=== PATIENT | female | born 1975 | race African-American/Black ===

== ENCOUNTER 2018-08-03 01:42 | Emergency (ER) | payer MEDICARE, MEDICAID ==
[2018-08-03 03:59] LABS: ABSOLUTE BASOPHILS # (AUTO) 0.1 10^3/uL (0.0-0.2); ABSOLUTE LYMPHOCYTES (AUTO) 1.9 10^3/uL (0.5-4.7); ABSOLUTE MONOCYTES (AUTO) 0.4 10^3/uL (0.1-1.4); ABSOLUTE NEUT (AUTO) 8.4 10^3/uL (1.7-8.2); BASOPHILS % (AUTO) 0.8 % (0-2); EOSINOPHILS % (AUTO) 0.2 % (0-6); HEMATOCRIT 39.9 % (36.0-47.0); HEMOGLOBIN 13.6 g/dL (12.0-15.5); LYMPHOCYTES % (AUTO) 17.8 % (13-45); MEAN CORPUSCULAR HEMOGLOBIN 30.2 pg (27.0-33.4); MEAN CORPUSCULAR HGB CONC 34.1 g/dL (32.0-36.0); MEAN CORPUSCULAR VOLUME 89 fl (80-97); MONOCYTES % (AUTO) 3.8 % (3-13); PLATELET COUNT 270 10^3/uL (150-450); RED BLOOD COUNT 4.51 10^6/uL (3.72-5.28); SEGMENTED NEUTROPHILS % (AUTO) 77.4 % (42-78); TOTAL CELLS COUNTED % (AUTO) 100 %; WHITE BLOOD COUNT 10.9 10^3/uL (4.0-10.5)
[2018-08-03 04:23] LABS: ALANINE AMINOTRANSFERASE 24 U/L (9-52); ALBUMIN 4.6 g/dL (3.5-5.0); ALKALINE PHOSPHATASE 55 U/L (38-126); ANION GAP 12 (5-19); ASPARTATE AMINO TRANSFERASE 27 U/L (14-36); BILIRUBIN,DIRECT 0.2 mg/dL (0.0-0.4); BILIRUBIN,TOTAL 0.5 mg/dL (0.2-1.3); BLOOD UREA NITROGEN 15 mg/dL (7-20); CALCIUM 10.1 mg/dL (8.4-10.2); CARBON DIOXIDE 26 mmol/L (22-30); CHLORIDE 101 mmol/L (98-107); GLUCOSE 111 mg/dL (75-110); POTASSIUM 4.2 mmol/L (3.6-5.0); SODIUM 138.7 mmol/L (137-145); TOTAL PROTEIN 8.2 g/dL (6.3-8.2)
[2018-08-03 04:57] LABS: APPEARANCE,URINE CLOUDY; BILIRUBIN,URINE NEGATIVE (NEGATIVE); COLOR,URINE YELLOW; GLUCOSE, URINE NEGATIVE (NEGATIVE); KETONES,URINE TRACE mg/dL (NEGATIVE); LEUKOCYTE ESTERASE,URINE NEGATIVE (NEGATIVE); NITRITE,URINE NEGATIVE (NEGATIVE); PROTEIN,URINE NEGATIVE (NEGATIVE); URINE SPECIFIC GRAVITY 1.028
[2018-08-03] MEDS ORDERED: ONDANSETRON ODT 4 MG TAB (6 TAB/ER DISP) PO PRN (06:27)
[2018-08-03] MEDS ORDERED: KETOROLAC TROMETHAMINE 60 MG/2 ML SDV IM ONE (06:27)
--- NOTE | 2018-08-03 06:33 | ER Document Report ---
ED General - General Chief Complaint: Vomiting Stated Complaint: VOMITING Time Seen by Provider: 08/03/18 06:10 Primary Care Provider: SREEKANTH GUZMAN DO [Primary Care Provider] - Follow up as needed - HPI Notes: Patient is a 43-year-old female who presents emergency department for evaluation of nausea, vomiting, back pain. The back pain is chronic. It was made worse after vomiting. She had 3 episodes of emesis, it all appeared to be the food that she had been eating earlier. She denies any fevers or chills. No diarrhea. No dysuria, hematuria, urinary frequency. She denies any abdominal pain. She states she was concerned she did not keep down her seizure medications. She does have a history of seizure disorder, is well controlled. Her last seizure was in April. She denies any bowel or bladder incontinence, no saddle anesthesia, no focal numbness or weakness. - Related Data Allergies/Adverse Reactions: Sulfa (Sulfonamide Antibiotics) Allergy (Verified 08/03/18 01:52) Past Medical History - General Information source: Patient - Social History Smoking Status: Current Some Day Smoker Chew tobacco use (# tins/day): No Frequency of alcohol use: Rare Drug Abuse: None Family History: Reviewed & Not Pertinent Patient has suicidal ideation: No Patient has homicidal ideation: No - Past Medical History Cardiac Medical History: Reports: Hx Hypertension Neurological Medical History: Reports: Hx Seizures Renal/ Medical History: Denies: Hx Peritoneal Dialysis Review of Systems - Review of Systems Constitutional: No symptoms reported EENT: No symptoms reported Cardiovascular: No symptoms reported Respiratory: No symptoms reported Gastrointestinal: See HPI Genitourinary: No symptoms reported Female Genitourinary: No symptoms reported Musculoskeletal: See HPI Skin: No symptoms reported Neurological/Psychological: No symptoms reported Physical Exam - Vital signs Vitals: Temp Pulse Resp BP Pulse Ox 97.7 F 87 16 154/90 H 95 08/03/18 01:52 08/03/18 01:52 08/03/18 01:52 08/03/18 01:52 08/03/18 01:52 - Notes Notes: Vital signs reviewed, please refer to chart. Patient is normocephalic, atraumatic. Pupils equal round, reactive to light. Neck is supple without meningismus. Heart is regular rate and rhythm. Lungs are clear to auscultation bilaterally. Abdomen is soft, nontender, normoactive bowel sounds throughout. Extremities without cyanosis, clubbing, edema. Peripheral pulses are equal. Skin is warm and dry. Patient is awake, alert, neurological exam is nonfocal. Examination of the spine is no midline tenderness step-off. There is paraspinal musculature tenderness noted from L3-L5 bilaterally with mild associated spasm. Negative straight leg raise bilaterally. Strength is plus 5 out of 5 bilateral lower extremities. Patellar and Achilles reflexes are 2+, sensation is intact. Course - Re-evaluation Re-evalutation: 08/03/18 06:32 Patient presents emergency department for evaluation. She had laboratory investigations as ordered through triage. There are no significant abnormalities noted. She has no sign of UTI. The patient was given Zofran via EMS on route to the hospital and is feeling improved in regards to that. She is ready to go. We will medicate her with Toradol for her back pain, send her home with Zofran. She is to take ibuprofen as needed for back pain, follow-up with primary care. She is to return to the emergency department with worsening or new concerning symptoms. - Vital Signs Vital signs: Temp Pulse Resp BP Pulse Ox 98.5 F 82 18 142/86 H 100 08/03/18 05:39 08/03/18 05:39 08/03/18 05:39 08/03/18 05:39 08/03/18 05:39 - Laboratory Result Diagrams: 08/03/18 03:35 08/03/18 03:35 Laboratory results interpreted by me: 08/03/18 08/03/18 08/03/18 03:35 03:35 04:29 WBC 10.9 H RDW 15.0 H Absolute Neutrophils 8.4 H Glucose 111 H Urine Ketones TRACE H Urine Urobilinogen 2.0 H Discharge - Discharge Clinical Impression: Nausea and vomiting Condition: Stable Disposition: HOME, SELF-CARE Instructions: Vomiting ([facility]), Antinausea Medication ([facility]) Additional Instructions: No clear reason was found for your vomiting today. Rest. Clear liquids only for the next several hours. Advance slowly to bland diet to avoid further vomiting. Take [id number] ibuprofen as needed for back pain. Return to the emergency department with worsening or new concerning symptoms. Referrals: SREEKANTH GUZMAN, [Primary Care Provider] - Follow up as needed
[2018-08-03 07:21] VITALS: BP 139/71
== END 2018-08-03 07:20 | disposition home or self-care (01) ==
LOC: ER 01:42
DX: R11.2 Nausea with vomiting, unspecified (principal); M54.9 Dorsalgia, unspecified; G89.29 Other chronic pain; G40.909 Epilepsy, unspecified, not intractable, without status epilepticus; F17.200 Nicotine dependence, unspecified, uncomplicated; I10 Essential (primary) hypertension
CPT/HCPCS: 99283; 96372; 36415; 85025; 80053; 81001; J1885; A9270

== ENCOUNTER 2018-08-03 18:58 | Emergency (ER) | payer MEDICARE, MEDICAID ==
--- NOTE | 2018-08-03 20:28 | ER Document Report ---
ED Medical Screen (RME) - General Chief Complaint: Probable Seizure Stated Complaint: POSSIBLE SEZIURE Time Seen by Provider: 08/03/18 20:21 Primary Care Provider: SREEKANTH GUZMAN DO [Primary Care Provider] - Follow up as needed Mode of Arrival: Wheelchair Information source: Patient Notes: 43-year-old female presented to ED for complaint possible seizure today. She states she came in earlier and was seen by 1 of the provider for her chronic back pain became much worse with vomiting. She states she takes her seizure medicine Depakote and her blood pressure medicine and she vomited those up to. She states when she went home she took her medicine for blood pressure and her Depakote and then she laid down to sleep said she woke up and she vomited and she was feeling like she was shaky and she thought she was having a seizure so she tried to stay calm until she can get sitting down but she was told that she needed to get up and opened the door to the house so that EMS could come in. She states that when she was trying to get to the door she fell knocking her primary care over but was very careful not to hit her head. She states she did not lose consciousness during her seizure and she tried to stay calm throughout it. Patient is alert oriented respirations regular and unlabored. I have greeted and performed a rapid initial assessment of this patient. A comprehensive ED assessment and evaluation of the patient, analysis of test results and completion of medical decision making process will be conducted by an additional ED providers. TRAVEL OUTSIDE OF THE [place] IN LAST 30 DAYS: No - Related Data Allergies/Adverse Reactions: Sulfa (Sulfonamide Antibiotics) Allergy (Verified 08/03/18 19:00) Past Medical History - Past Medical History Cardiac Medical History: Reports: Hx Hypertension Neurological Medical History: Reports: Hx Seizures Renal/ Medical History: Denies: Hx Peritoneal Dialysis Physical Exam - Vital signs Vitals: Temp Pulse Resp BP Pulse Ox 98.1 F 96 16 137/95 H 99 08/03/18 19:40 08/03/18 19:40 08/03/18 19:40 08/03/18 19:40 08/03/18 19:40 Course - Vital Signs Vital signs: Temp Pulse Resp BP Pulse Ox 98.1 F 96 16 137/95 H 99 08/03/18 19:40 08/03/18 19:40 08/03/18 19:40 08/03/18 19:40 08/03/18 19:40 Doctor's Discharge - Discharge Referrals: SREEKANTH GUZMAN DO [Primary Care Provider] - Follow up as needed
[2018-08-03 21:15] LABS: APPEARANCE,URINE CLOUDY; BILIRUBIN,URINE NEGATIVE (NEGATIVE); GLUCOSE, URINE NEGATIVE (NEGATIVE); KETONES,URINE TRACE mg/dL (NEGATIVE); LEUKOCYTE ESTERASE,URINE TRACE (NEGATIVE); NITRITE,URINE NEGATIVE (NEGATIVE); PROTEIN,URINE 100 mg/dL (NEGATIVE); URINE SPECIFIC GRAVITY 1.033
[2018-08-03 21:16] LABS: COLOR,URINE YELLOW
[2018-08-03 21:55] LABS: ABSOLUTE BASOPHILS # (AUTO) 0.2 10^3/uL (0.0-0.2); ABSOLUTE EOSINOPHILS # (AUTO) 0.1 10^3/uL (0.0-0.6); ABSOLUTE LYMPHOCYTES (AUTO) 3.4 10^3/uL (0.5-4.7); ABSOLUTE MONOCYTES (AUTO) 0.8 10^3/uL (0.1-1.4); ABSOLUTE NEUT (AUTO) 6.2 10^3/uL (1.7-8.2); BASOPHILS % (AUTO) 1.5 % (0-2); EOSINOPHILS % (AUTO) 0.7 % (0-6); HEMATOCRIT 39.8 % (36.0-47.0); HEMOGLOBIN 13.4 g/dL (12.0-15.5); MEAN CORPUSCULAR HGB CONC 33.7 g/dL (32.0-36.0); MEAN CORPUSCULAR VOLUME 89 fl (80-97); MONOCYTES % (AUTO) 7.4 % (3-13); PLATELET COUNT 264 10^3/uL (150-450); RED BLOOD COUNT 4.47 10^6/uL (3.72-5.28); RED CELL DISTRIBUTION WIDTH 15.5 % (11.5-14.0); SEGMENTED NEUTROPHILS % (AUTO) 58.4 % (42-78); TOTAL CELLS COUNTED % (AUTO) 100 %; WHITE BLOOD COUNT 10.6 10^3/uL (4.0-10.5)
[2018-08-03 22:13] LABS: ALANINE AMINOTRANSFERASE 32 U/L (9-52); ALBUMIN 4.3 g/dL (3.5-5.0); ALKALINE PHOSPHATASE 52 U/L (38-126); ANION GAP 12 (5-19); ASPARTATE AMINO TRANSFERASE 27 U/L (14-36); BILIRUBIN,DIRECT 0.3 mg/dL (0.0-0.4); BILIRUBIN,TOTAL 0.7 mg/dL (0.2-1.3); BLOOD UREA NITROGEN 17 mg/dL (7-20); CALCIUM 9.8 mg/dL (8.4-10.2); CARBON DIOXIDE 25 mmol/L (22-30); CHLORIDE 100 mmol/L (98-107); GLUCOSE 93 mg/dL (75-110); POTASSIUM 4.1 mmol/L (3.6-5.0); SODIUM 136.7 mmol/L (137-145); TOTAL PROTEIN 7.8 g/dL (6.3-8.2)
[2018-08-03] MEDS ORDERED: ONDANSETRON 4 MG TAB.RAPDIS PO ONE (23:42)
[2018-08-03] MEDS ORDERED: DIVALPROEX SODIUM 500 MG TAB.SR.24H PO ONE (23:42)
[2018-08-03] MEDS ORDERED: LEVETIRACETAM 500 MG TABLET PO ONE (23:42)
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
[2018-08-04 02:26] VITALS: BP 130/88
== END 2018-08-04 00:15 | disposition home or self-care (01) ==
LOC: ER 18:58
DX: R56.9 Unspecified convulsions (principal); M54.9 Dorsalgia, unspecified; R55 Syncope and collapse; R53.1 Weakness; W18.30XA Fall on same level, unspecified, initial encounter; Y92.009 Unspecified place in unspecified non-institutional (private) residence as the place of occurrence of the external cause; I10 Essential (primary) hypertension
CPT/HCPCS: 99284; 36415; 85025; 80053; 81001; 80164; A9270 ×3; S0119

== ENCOUNTER 2019-04-10 21:34 | Emergency (ER) | payer MEDICARE, MEDICAID ==
[2019-04-10] MEDS ORDERED: NORMAL SALINE 1000 ML 1,000 ML IV ONE (22:41)
[2019-04-10] MEDS ORDERED: DIAZEPAM 5 MG TABLET PO ONE (22:41)
--- NOTE | 2019-04-10 22:43 | ER Document Report ---
ED General - General Chief Complaint: Chest Pain > 30 Stated Complaint: CHEST PAIN Time Seen by Provider: 04/10/19 22:34 Primary Care Provider: BRANDON CORTES PA-C [Primary Care Provider] - Follow up as needed Notes: Patient is a 43-year-old female that comes by EMS for chief complaint of pain along her chest that started last night about 24 hours ago, she states that it has continued and she could not get to sleep tonight, she states it feels like a spasm across her chest and into her right arm. She states she actually has chronic spasms mainly in her right arm and occasionally over the chest, she takes baclofen for this, she states normally the baclofen works but did not tonight. She denies injury, numbness, fever/chills, nausea/vomiting, or other locations of pain. She states she has a history of hypertension and seizures and takes Depakote and lisinopril, denies recreational drugs or smoking, denies medical history otherwise. She was given 324 mg of aspirin and a sublingual nitroglycerin by EMS, she states she feels the same. Patient secondarily states that she has been urinating frequently as well and not drinking much fluid. TRAVEL OUTSIDE OF THE [place] IN LAST 30 DAYS: No - Related Data Allergies/Adverse Reactions: Sulfa (Sulfonamide Antibiotics) Allergy (Verified 08/03/18 19:00) Home Medications: lisinopril 40mg QAM, Gabapentin, Depakote 500 mg BID, Baclofen 10mg TID, Ambien 10 mg, Melatonin gummies Past Medical History - General Information source: Patient - Social History Smoking Status: Never Smoker Frequency of alcohol use: None Drug Abuse: None Lives with: Family Family History: Reviewed & Not Pertinent Patient has suicidal ideation: No Patient has homicidal ideation: No - Past Medical History Cardiac Medical History: Reports: Hx Hypertension Neurological Medical History: Reports: Hx Seizures Renal/ Medical History: Denies: Hx Peritoneal Dialysis Surgical Hx: Negative - Immunizations Immunizations up to date: Yes Hx Diphtheria, Pertussis, Tetanus Vaccination: Yes Review of Systems - Review of Systems Constitutional: No symptoms reported EENT: No symptoms reported Cardiovascular: See HPI Respiratory: No symptoms reported Gastrointestinal: No symptoms reported Genitourinary: No symptoms reported Female Genitourinary: No symptoms reported Musculoskeletal: See HPI Skin: No symptoms reported Hematologic/Lymphatic: No symptoms reported Neurological/Psychological: No symptoms reported Physical Exam - Vital signs Vitals: Resp Pulse Ox 12 100 04/10/19 22:01 04/10/19 22:01 - Notes Notes: GENERAL: Alert, interacts well. No acute distress. HEAD: Normocephalic, atraumatic. EYES: Pupils equal, round, and reactive to light. Extraocular movements intact. ENT: Oral mucosa moist, tongue midline. Oropharynx unremarkable. Airway patent. NECK: Full range of motion. Supple. Trachea midline. LUNGS: Clear to auscultation bilaterally, no wheezes, rales, or rhonchi. No respiratory distress. Pain with palpation over the mid to right side of the chest, pain is also worsened with movement of the right arm and shoulder. HEART: Regular rate and rhythm. No murmur ABDOMEN: Soft, non-tender. Non-distended. EXTREMITIES: Moves all 4 extremities spontaneously. No edema, normal radial and dorsalis pedis pulses bilaterally. No cyanosis. BACK: no cervical, thoracic, lumbar midline tenderness. No saddle anesthesia, normal distal neurovascular exam. Moves all extremities in full range of motion. NEUROLOGICAL: Alert and oriented x3. Normal speech. Cranial nerves II through XII grossly intact. PSYCH: Slightly flat affect but makes good eye contact and interacts well otherwise SKIN: Warm, dry, normal turgor. No rashes or lesions noted. Course - Re-evaluation Re-evalutation: Patient with reproducible symptoms with movement and with palpation over the chest wall. This is also not new for patient, she normally takes baclofen for this. There is no sign of injury. Patient is not in severe distress. CBC, chemistry, initial troponin negative. negative. Chest x-ray unremarkable. Patient feels somewhat better after initial management. Delta troponin negative. EKG is somewhat borderline with no comparison, however patient does not really have chest pain, she states she has muscle spasms over her chest and this is worse when she moves and this is chronic for her. Her heart score is less than 4. Patient asymptomatic on reevaluation after treatment for spasm and with anti-inflammatory. I discussed her results in detail, she states satisfaction and she is ready to leave. She states the spasm is under control and she feels much better now. We did discuss treatment options, because this is her chest wall we did provide her with dexamethasone. She has baclofen at home for this. I have a very low suspicion of ACS based on her negative work-up and reproducible chronic symptoms. Discussed follow-up and return precautions. Patient states appreciation and agreement. Stable at time of discharge. - Vital Signs Vital signs: Temp Pulse Resp BP Pulse Ox 97.9 F 87 21 H 147/97 H 100 04/11/19 06:41 04/11/19 06:41 04/11/19 06:41 04/11/19 06:41 04/11/19 06:41 - Laboratory Result Diagrams: 04/10/19 23:25 04/10/19 23:25 Laboratory results interpreted by me: 04/10/19 23:25 RDW 15.5 H Lymph % (Auto) 45.9 H - EKG Interpretation by Me Additional EKG results interpreted by me: EKG shows sinus rhythm at a rate of 95, normal axis. Borderline T waves inferiorly, no ST segment changes in consecutive leads. No comparison. Discharge - Discharge Clinical Impression: Chest wall pain, Muscle spasm Condition: Stable Disposition: HOME, SELF-CARE Additional Instructions: You have been evaluated for chest pain and chest wall pain in the emergency department tonight. Continue baclofen for muscle spasms, apply heat to your chest wall, you have been treated with dexamethasone to help with your symptoms. Follow-up with primary care for additional evaluation. Return for any concerning or worsening symptoms including fever, difficulty breathing, vomiting, severe worsening pain, passing out, or any other concerning symptoms. Referrals: BRANDON CORTES PA-C [Primary Care Provider] - Follow up as needed
[2019-04-10 23:06] LABS: APPEARANCE,URINE CLEAR; BILIRUBIN,URINE NEGATIVE (NEGATIVE); COLOR,URINE STRAW; GLUCOSE, URINE NEGATIVE (NEGATIVE); KETONES,URINE NEGATIVE (NEGATIVE); LEUKOCYTE ESTERASE,URINE NEGATIVE (NEGATIVE); NITRITE,URINE NEGATIVE (NEGATIVE); PROTEIN,URINE NEGATIVE (NEGATIVE); URINE SPECIFIC GRAVITY 1.009; UROBILINOGEN,URINE NEGATIVE mg/dL (<2.0)
[2019-04-10 23:41] LABS: ABSOLUTE BASOPHILS # (AUTO) 0.1 10^3/uL (0.0-0.2); ABSOLUTE MONOCYTES (AUTO) 0.5 10^3/uL (0.1-1.4); ABSOLUTE NEUT (AUTO) 4.1 10^3/uL (1.7-8.2); BASOPHILS % (AUTO) 1.2 % (0-2); EOSINOPHILS % (AUTO) 0.4 % (0-6); HEMATOCRIT 39.2 % (36.0-47.0); HEMOGLOBIN 13.2 g/dL (12.0-15.5); LYMPHOCYTES % (AUTO) 45.9 % (13-45); MEAN CORPUSCULAR HEMOGLOBIN 29.9 pg (27.0-33.4); MEAN CORPUSCULAR HGB CONC 33.6 g/dL (32.0-36.0); MEAN CORPUSCULAR VOLUME 89 fl (80-97); MONOCYTES % (AUTO) 5.7 % (3-13); PLATELET COUNT 221 10^3/uL (150-450); RED BLOOD COUNT 4.41 10^6/uL (3.72-5.28); RED CELL DISTRIBUTION WIDTH 15.5 % (11.5-14.0); SEGMENTED NEUTROPHILS % (AUTO) 46.8 % (42-78); TOTAL CELLS COUNTED % (AUTO) 100 %; WHITE BLOOD COUNT 8.8 10^3/uL (4.0-10.5)
--- NOTE | 2019-04-10 23:44 | RADIOLOGY REPORT (SQ) ---
EXAM DESCRIPTION: XR CHEST 2 VIEWS COMPLETED DATE/TME: 04/10/2019 22:40 CLINICAL HISTORY: 43 years, Female, chest pain COMPARISON: None. NUMBER OF VIEWS: 2 TECHNIQUE: 2 views of the chest LIMITATIONS: None. FINDINGS: The heart size is normal. The lungs are clear. There is no pneumothorax IMPRESSION: Negative chest copyright 2010 [facility]- All Rights Reserved
[2019-04-10 23:53] LABS: ALBUMIN 4.2 g/dL (3.5-5.0); ALKALINE PHOSPHATASE 57 U/L (38-126); ANION GAP 9 (5-19); ASPARTATE AMINO TRANSFERASE 29 U/L (14-36); BILIRUBIN,DIRECT 0.1 mg/dL (0.0-0.4); BILIRUBIN,TOTAL 0.5 mg/dL (0.2-1.3); BLOOD UREA NITROGEN 12 mg/dL (7-20); CALCIUM 9.6 mg/dL (8.4-10.2); CARBON DIOXIDE 26 mmol/L (22-30); CHLORIDE 103 mmol/L (98-107); GLUCOSE 93 mg/dL (75-110); POTASSIUM 3.9 mmol/L (3.6-5.0); TOTAL PROTEIN 7.8 g/dL (6.3-8.2)
[2019-04-11] MEDS ORDERED: KETOROLAC TROMETHAMINE INJ/PF 30 MG/1 ML SDV IV ONE (01:15)
[2019-04-11] MEDS ORDERED: LORAZEPAM INJ 2 MG/1 ML VIAL IV ONE (01:15)
[2019-04-11] MEDS ORDERED: DEXAMETHASONE SOD PHOS INJ 10 MG/1 ML VIAL IV ONE (03:30)
[2019-04-11 06:42] VITALS: BP 147/97
--- NOTE | 2019-04-11 20:03 | EKG REPORT ---
SEVERITY:- ABNORMAL ECG - SINUS RHYTHM BORDERLINE RIGHT AXIS DEVIATION ABNORMAL T, CONSIDER ISCHEMIA, INFERIOR LEADS : Confirmed by: Vivienne Ronquillo MD 11-Apr-2019 20:02:44
== END 2019-04-11 06:42 | disposition home or self-care (01) ==
LOC: ER 21:34
DX: R07.89 Other chest pain (principal); M62.838 Other muscle spasm; I10 Essential (primary) hypertension; Z88.2 Allergy status to sulfonamides
CPT/HCPCS: 93005; 99285; 96361; 96374; 96375; 36415; 84703; 85025; 80053; 81001; 84484; 71046; 93010; A9270; J1885; J2060; J7030; J1100

== ENCOUNTER 2019-06-26 21:06 | Emergency (ER) | payer MEDICARE, MEDICAID ==
[2019-06-26] MEDS ORDERED: LORAZEPAM INJ 2 MG/1 ML VIAL IV ONE (22:21)
[2019-06-26] MEDS ORDERED: KETOROLAC TROMETHAMINE INJ/PF 30 MG/1 ML SDV IV ONE (22:21)
--- NOTE | 2019-06-26 22:22 | ER Document Report ---
ED General - General Chief Complaint: Chest Pain Stated Complaint: CHEST PAIN Time Seen by Provider: 06/26/19 22:03 Primary Care Provider: BRANDON CORTES PA-C [Primary Care Provider] - Follow up as needed Cannot obtain history due to: Uncooperative Notes: 44-year-old woman presents with a complaint of muscle spasms and chest discomfort. States that she has history of a seizure disorder and usually preceded by spasms involving her arms and shoulders with associated chest discomfort. She has been taking baclofen at home and recently had a 72-hour EEG. She has not heard from the results of the EEG the symptoms began this afternoon about 1:00 in the afternoon. She states that she is gripping the rail now to keep the spasm under some control. She has pain in the shoulder area pain in the anterior chest and also pain in the arms. TRAVEL OUTSIDE OF THE [place] IN LAST 30 DAYS: No - Related Data Allergies/Adverse Reactions: Sulfa (Sulfonamide Antibiotics) Allergy (Verified 08/03/18 19:00) Past Medical History - Social History Smoking Status: Unknown if Ever Smoked Family History: Reviewed & Not Pertinent Patient has suicidal ideation: No Patient has homicidal ideation: No - Past Medical History Cardiac Medical History: Reports: Hx Hypertension Neurological Medical History: Reports: Hx Seizures Renal/ Medical History: Denies: Hx Peritoneal Dialysis - Immunizations Immunizations up to date: Yes Hx Diphtheria, Pertussis, Tetanus Vaccination: Yes Review of Systems - Review of Systems Notes: Constitutional: Negative for fever. HENT: Negative for sore throat. Eyes: Negative for visual changes. Cardiovascular: Negative for chest pain. Respiratory: Negative for shortness of breath. Gastrointestinal: Negative for abdominal pain, vomiting or diarrhea. Genitourinary: Negative for dysuria. Musculoskeletal: + Muscle spasm, + musculoskeletal chest pain. Skin: Negative for rash. Neurological: Negative for headaches, weakness or numbness. 10 point ROS negative except as marked above and in HPI. Physical Exam - Vital signs Vitals: Resp Pulse Ox 16 100 06/26/19 21:26 06/26/19 21:26 - Notes Notes: PHYSICAL EXAMINATION: Physical Exam: General: Well-nourished well-developed 84-year-old woman in moderate distress secondary to muscle spasms. HEENT: NC/AT, pupils equal round and reactive to light, MM moist,nares clear, oropharynx clear, airway patent Neck: supple, no adenopathy, no masses. Good range of motion Lungs: clear, no wheezing, no rales no rhonchi CVS: Regular rate and rhythm no murmur gallop or rub Abdomen: Soft, active, nontender, no masses, no hepatosplenomegaly Ext: + Tenderness in the right upper trapezius muscle group and tenderness to palpation left upper trapezius and tricep region + anterior chest pain. Neuro: Alert and responsive, moving all 4 extremities on command, cranial nerves intact, no focal findings Skin: Intact no open lesions, no rash PSYCH: Normal mood, normal affect. Course - Re-evaluation Re-evalutation: 06/27/19 00:07 Patient was given Lorazepam 2 mg IV along with her usual medications Depakote and baclofen 20 mg in the emergency department. She continues to have some milder symptoms but is markedly improved. I am discharging her home to follow- up with her primary care doctor with regards to her EEG and further management of her muscle spasms. - Vital Signs Vital signs: Temp Pulse Resp BP Pulse Ox 16 99 06/26/19 21:26 06/26/19 22:33 - Laboratory Result Diagrams: 06/26/19 22:25 06/26/19 22:25 Laboratory results interpreted by me: 06/26/19 06/26/19 22:25 22:25 RDW 15.2 H Lymph % (Auto) 47.2 H Creatine Kinase 418 H I have reviewed laboratory data and used this information for the treatment decisions regarding the patient. - EKG Interpretation by Me EKG shows normal: Sinus rhythm - Rate of 98, left atrial abnormality, nonspecific T wave abnormalities. No acute ST or T wave abnormalities seen. Discharge - Discharge Clinical Impression: Chest pain, musculoskeletal, Muscle spasm Condition: Good Disposition: HOME, SELF-CARE Additional Instructions: You are diagnosed with muscle spasms and muscle skeletal chest pain in the [facility] department tonight. Please continue your usual medications and follow-up with your doctor regarding the results of your EEG. You may return to the emergency department if your symptoms are worsening or if you have new concerns. HOME CARE INSTRUCTIONS & INFORMATION: Thank you for choosing us for your medical needs. We hope you're satisfied with the care you received. After you leave, you must properly care for your problem and, at the same time, observe its progress. Any condition can change. Some illnesses can change rapidly over hours or days. If your condition worsens, return to the Emergency Department or see your physician promptly. ABOUT YOUR X-RAYS AND EKG'S: If you had an EKG or X-rays taken, they have been read by the Emergency Physician. The X-rays and EKG's will also be read by a Radiologist or [employer] within 24 hours. If discrepancies are noted, you will be notified by telephone. Please be certain the ED has a correct telephone number & address where you can be reached. Also, realize that some fractures or abnormalities do not show up on initial X-rays. If your symptoms continue, see your physician. ABOUT YOUR LABORATORY TEST: If you had laboratory tests, the results have been reviewed by the Emergency Physician. Some test results (for example cultures) may not be available for several days. You will be contacted if any test result shows you need additional treatment. Please be certain the ED has a correct telephone number and address where you can be reached. ABOUT YOUR MEDICATIONS: You will receive instructions on how to take your medicine on the prescription label you receive. Additional information may be provided by the Pharmacy. If you have questions afterwards, call the ED for clarification or further instructions. Some prescribed medications may cause drowsiness. Do not perform tasks such as driving a car or operating machinery without consulting your Pharmacist. If you feel you need a refill of pain medication, your condition will need re-evaluation. Please do not call for a refill of any medication. ABOUT YOUR SIGNATURE: Signature of this document acknowledges to followin. Understanding that you received emergency treatment and that you may be released before al medical problems are known or treated. Please be certain the ED has a correct phone number & address where you can be reached. 2. Acknowledgement that you will arrange for follow-up care as recommended. 3. Authorization for the Emergency Physician to provide information to your follow-up Physician in order to maximize your care. AT ANY TIME, IF YOUR SYMPTOMS CHANGE SIGNIFICANTLY OR WORSEN OR YOU DEVELOP NEW SYMPTOMS, RETURN TO THE EMERGENCY DEPARTMENT IMMEDIATELY FOR RE-EVALUATION. OUR GOAL IS TO PROVIDE EXCELLENT MEDICAL CARE! WE HOPE THAT WE HAVE MET YOUR EXPECTATIONS DURING YOUR EMERGENCY DEPARTMENT VISIT AND THAT YOU FEEL YOU HAVE RECEIVED EXCELLENT CARE! Referrals: BRANDON CORTES PA-C [Primary Care Provider] - Follow up as needed
[2019-06-26 22:44] LABS: ABSOLUTE BASOPHILS # (AUTO) 0.1 10^3/uL (0.0-0.2); ABSOLUTE EOSINOPHILS # (AUTO) 0.1 10^3/uL (0.0-0.6); ABSOLUTE LYMPHOCYTES (AUTO) 4.6 10^3/uL (0.5-4.7); ABSOLUTE MONOCYTES (AUTO) 0.6 10^3/uL (0.1-1.4); ABSOLUTE NEUT (AUTO) 4.3 10^3/uL (1.7-8.2); BASOPHILS % (AUTO) 1.4 % (0-2); EOSINOPHILS % (AUTO) 0.6 % (0-6); HEMATOCRIT 38.5 % (36.0-47.0); LYMPHOCYTES % (AUTO) 47.2 % (13-45); MEAN CORPUSCULAR HEMOGLOBIN 29.8 pg (27.0-33.4); MEAN CORPUSCULAR HGB CONC 33.7 g/dL (32.0-36.0); MEAN CORPUSCULAR VOLUME 88 fl (80-97); MONOCYTES % (AUTO) 6.3 % (3-13); PLATELET COUNT 240 10^3/uL (150-450); RED BLOOD COUNT 4.36 10^6/uL (3.72-5.28); RED CELL DISTRIBUTION WIDTH 15.2 % (11.5-14.0); SEGMENTED NEUTROPHILS % (AUTO) 44.5 % (42-78); TOTAL CELLS COUNTED % (AUTO) 100 %; WHITE BLOOD COUNT 9.7 10^3/uL (4.0-10.5)
[2019-06-26 22:57] LABS: ALKALINE PHOSPHATASE 55 U/L (38-126); ANION GAP 12 (5-19); ASPARTATE AMINO TRANSFERASE 30 U/L (14-36); BILIRUBIN,DIRECT 0.3 mg/dL (0.0-0.4); BILIRUBIN,TOTAL 0.5 mg/dL (0.2-1.3); BLOOD UREA NITROGEN 16 mg/dL (7-20); CALCIUM 9.4 mg/dL (8.4-10.2); CARBON DIOXIDE 23 mmol/L (22-30); CHLORIDE 104 mmol/L (98-107); CREATINE KINASE 418 U/L (30-135); GLUCOSE 86 mg/dL (75-110); POTASSIUM 4.1 mmol/L (3.6-5.0); TOTAL PROTEIN 7.6 g/dL (6.3-8.2)
[2019-06-26 23:07] LABS: CREATINE KINASE MB 3.34 ng/mL (<4.55)
[2019-06-26 23:08] LABS: TROPONIN I < 0.012 ng/mL
[2019-06-26] MEDS ORDERED: DIVALPROEX SODIUM 500 MG TAB.SR.24H PO ONE (23:19)
[2019-06-26] MEDS ORDERED: BACLOFEN 20 MG TABLET PO ONE (23:20)
[2019-06-27 01:11] VITALS: BP 167/111
--- NOTE | 2019-06-27 17:24 | EKG REPORT ---
SEVERITY:- ABNORMAL ECG - SINUS RHYTHM LEFT ATRIAL ABNORMALITY NONSPECIFIC T ABNORMALITIES, DIFFUSE LEADS : Confirmed by: Priyanka Jones 27-Jun-2019 17:23:18
== END 2019-06-27 01:29 | disposition home or self-care (01) ==
LOC: ER 21:06
DX: M62.838 Other muscle spasm (principal); R07.89 Other chest pain; I10 Essential (primary) hypertension; Z79.899 Other long term (current) drug therapy
CPT/HCPCS: 93005; 99285; 96374; 96375; 36415; 82553; 82550; 85025; 80053; 84484; 93010; J1885; J2060; A9270 ×2; J3490

== ENCOUNTER 2019-06-29 09:31 | Emergency (ER) | payer MEDICARE, MEDICAID ==
--- NOTE | 2019-06-29 10:20 | ER Document Report ---
ED Medical Screen (RME) - General Chief Complaint: Tremor Stated Complaint: TREMORS Time Seen by Provider: 06/29/19 10:14 Primary Care Provider: BRANDON CORTES PA-C [Primary Care Provider] - Follow up as needed Mode of Arrival: Wheelchair Notes: This is a 44-year-old female presents to the emergency room today stating she has chest pain left shoulder tremors she states the tremors have been ongoing since she was roughly 11 years old after a traumatic event. The chest pain initiated this morning at 7:00 and woke her from sleep. TRAVEL OUTSIDE OF THE [place] IN LAST 30 DAYS: No - Related Data Allergies/Adverse Reactions: Sulfa (Sulfonamide Antibiotics) Allergy (Verified 08/03/18 19:00) Home Medications: Depakote, Baclofen, lisinopril, lasix, gabapentin, meloxicam, aspirin Past Medical History - Social History Frequency of alcohol use: Occasional Drug Abuse: None - Past Medical History Cardiac Medical History: Reports: Hx Hypertension Neurological Medical History: Reports: Hx Seizures Renal/ Medical History: Denies: Hx Peritoneal Dialysis - Immunizations Immunizations up to date: Yes Hx Diphtheria, Pertussis, Tetanus Vaccination: Yes Physical Exam - Vital signs Vitals: Temp Pulse Resp BP Pulse Ox 98.4 F 98 18 143/101 H 100 06/29/19 09:38 06/29/19 09:38 06/29/19 09:38 06/29/19 09:38 06/29/19 09:38 - Cardiovascular Rhythm: Regular Heart sounds: Normal auscultation Murmur: No Course - Vital Signs Vital signs: Temp Pulse Resp BP Pulse Ox 98.4 F 98 18 143/101 H 100 06/29/19 09:38 06/29/19 09:38 06/29/19 09:38 06/29/19 09:38 06/29/19 09:38 Doctor's Discharge - Discharge Referrals: BRANDON CORTES PA-C [Primary Care Provider] - Follow up as needed
[2019-06-29 10:59] LABS: ABSOLUTE BASOPHILS # (AUTO) 0.1 10^3/uL (0.0-0.2); ABSOLUTE LYMPHOCYTES (AUTO) 2.7 10^3/uL (0.5-4.7); ABSOLUTE MONOCYTES (AUTO) 0.3 10^3/uL (0.1-1.4); ABSOLUTE NEUT (AUTO) 3.5 10^3/uL (1.7-8.2); BASOPHILS % (AUTO) 1.2 % (0-2); EOSINOPHILS % (AUTO) 0.5 % (0-6); HEMATOCRIT 39.6 % (36.0-47.0); HEMOGLOBIN 13.3 g/dL (12.0-15.5); MEAN CORPUSCULAR HEMOGLOBIN 29.8 pg (27.0-33.4); MEAN CORPUSCULAR HGB CONC 33.5 g/dL (32.0-36.0); MEAN CORPUSCULAR VOLUME 89 fl (80-97); MONOCYTES % (AUTO) 4.8 % (3-13); PLATELET COUNT 235 10^3/uL (150-450); RED BLOOD COUNT 4.45 10^6/uL (3.72-5.28); RED CELL DISTRIBUTION WIDTH 14.7 % (11.5-14.0); SEGMENTED NEUTROPHILS % (AUTO) 52.5 % (42-78); TOTAL CELLS COUNTED % (AUTO) 100 %; WHITE BLOOD COUNT 6.6 10^3/uL (4.0-10.5)
[2019-06-29 11:20] LABS: ALBUMIN 4.1 g/dL (3.5-5.0); ALKALINE PHOSPHATASE 46 U/L (38-126); ANION GAP 10 (5-19); ASPARTATE AMINO TRANSFERASE 29 U/L (14-36); BILIRUBIN,DIRECT 0.2 mg/dL (0.0-0.4); BILIRUBIN,TOTAL 0.8 mg/dL (0.2-1.3); BLOOD UREA NITROGEN 13 mg/dL (7-20); CALCIUM 9.1 mg/dL (8.4-10.2); CARBON DIOXIDE 25 mmol/L (22-30); CHLORIDE 103 mmol/L (98-107); CREATINE KINASE 364 U/L (30-135); GLUCOSE 86 mg/dL (75-110); POTASSIUM 4.1 mmol/L (3.6-5.0); TOTAL PROTEIN 7.7 g/dL (6.3-8.2)
[2019-06-29] MEDS ORDERED: KETOROLAC TROMETHAMINE INJ/PF 30 MG/1 ML SDV IV ONE (11:40)
[2019-06-29] MEDS ORDERED: DIAZEPAM 5 MG TABLET PO ONE (11:40)
[2019-06-29 11:47] LABS: CREATINE KINASE MB 3.57 ng/mL (<4.55)
--- NOTE | 2019-06-29 11:47 | ER Document Report ---
ED Cardiac - General Chief Complaint: Tremor Stated Complaint: TREMORS Time Seen by Provider: 06/29/19 10:14 Primary Care Provider: BRANDON CORTES PA-C [Primary Care Provider] - Follow up as needed Mode of Arrival: Wheelchair Notes: CHIEF COMPLAINT: Muscle spasm and chest pain today HPI: 44-year-old female with a history of muscular spasm followed by neurology presenting with right-sided chest pain that began this morning, reports some lightheadedness. States pain is reproducible to palpation of movement. States that she had something similar 3 days ago when she presented to the emergency department. Patient states that she did call her neurologist after that visit and they told her to stop her baclofen which she has been on for a long time. Now reporting worsening spasm. No shortness of breath no fever no cough. States she has never seen a oncologist. ROS: See HPI - all other systems were reviewed and are otherwise negative Constitutional: no fever Eyes: no drainage, no blurred vision ENT: no runny nose, no sore throat Cardiovascular: Positive chest wall pain Resp: no SOB, no cough GI: no vomiting, no diarrhea, no abdominal pain : no dysuria Integumentary: no rash Allergy: no hives Musculoskeletal: Positive extremity pain or swelling Neurological: no numbness/tingling, no weakness MEDICATIONS: I agree with the patient medications as charted by the RN. ALLERGIES: I agree with the allergies as charted by the RN. PAST MEDICAL HISTORY/PAST SURGICAL HISTORY: Reviewed and agree as charted by RN. SOCIAL HISTORY: Reviewed and agree as charted by RN. FAMILY HISTORY: No significant familial comorbid conditions directly related to patient complaint EXAM: Reviewed vital signs as charted by RN. CONSTITUTIONAL: Alert and oriented and responds appropriately to questions. Well-appearing; well-nourished, no acute distress HEAD: Normocephalic; atraumatic EYES: PERRL; Conjunctivae clear, sclerae non-icteric ENT: normal nose; no rhinorrhea; moist mucous membranes; pharynx without lesions noted, no uvula edema or deviation, no tonsillar hypertrophy, phonation normal NECK: Supple without meningismus; non-tender; no cervical lymphadenopathy, no masses CARD: RRR; no murmurs, no clicks, no rubs, no gallops; symmetric distal pulses RESP: Normal chest excursion without splinting or tachypnea; breath sounds clear and equal bilaterally; no wheezes, no rhonchi, no rales, pulse oximetry 100% on room air not hypoxic. There is reproducible pain on palpation of the right upper chest wall ABD/GI: Normal bowel sounds; non-distended; soft, non-tender, no rebound, no guarding; no palpable organomegaly or masses. BACK: The back appears normal and is non-tender to palpation, there is no CVA tenderness EXT: Normal ROM in all joints; non-tender to palpation; no cyanosis, no effusions, no edema SKIN: Normal color for age and race; warm; dry; good turgor; no acute lesions noted NEURO: Moves all extremities equally; Motor and sensory function intact PSYCH: The patient's mood and manner are appropriate. Grooming and personal hygiene are appropriate. MDM: 44-year-old female presenting with pain that is reproducible in nature. Similar to 3 days ago when she was seen in the emergency department for same complaint. EKG is unchanged from 3 days ago. Initial screening labs ordered through triage process, awaiting troponin at this time, patient is fairly low risk for ACS. Initial heart score will be 3 if initial troponin is normal. Will give patient Valium and Toradol here to help with her reproducible pain. TRAVEL OUTSIDE OF THE [place] IN LAST 30 DAYS: No - Related Data Allergies/Adverse Reactions: Sulfa (Sulfonamide Antibiotics) Allergy (Verified 06/29/19 12:53) Home Medications: Depakote, Baclofen, lisinopril, lasix, gabapentin, meloxicam, aspirin Past Medical History - Social History Smoking Status: Never Smoker Frequency of alcohol use: Occasional Drug Abuse: None Family History: Reviewed & Not Pertinent Patient has suicidal ideation: No Patient has homicidal ideation: No - Past Medical History Cardiac Medical History: Reports: Hx Hypertension Neurological Medical History: Reports: Hx Seizures Renal/ Medical History: Denies: Hx Peritoneal Dialysis - Immunizations Immunizations up to date: Yes Hx Diphtheria, Pertussis, Tetanus Vaccination: Yes Physical Exam - Vital signs Vitals: Temp Pulse Resp BP Pulse Ox 98.4 F 98 18 143/101 H 100 06/29/19 09:38 06/29/19 09:38 06/29/19 09:38 06/29/19 09:38 06/29/19 09:38 Course - Re-evaluation Re-evalutation: 06/29/19 15:39 Second troponin is negative, will discharge home this is likely related to her muscle spasm. She will need to follow-up with her neurologist regarding pain management issues - Vital Signs Vital signs: Temp Pulse Resp BP Pulse Ox 98.4 F 98 16 144/93 H 99 06/29/19 09:38 06/29/19 09:38 06/29/19 15:00 06/29/19 15:00 06/29/19 15:00 - Laboratory Result Diagrams: 06/29/19 10:44 06/29/19 10:44 Laboratory results interpreted by me: 06/29/19 06/29/19 10:44 10:44 RDW 14.7 H Creatine Kinase 364 H Discharge - Discharge Clinical Impression: Chest wall pain Condition: Stable Disposition: HOME, SELF-CARE Additional Instructions: Follow-up closely with both your primary care provider and your neurologist for further pain management issues. Your cardiac lab work today did not show acute emergent abnormalities as discussed Prescriptions: Diazepam [Valium 5 mg Tablet] 5 mg PO QIDP PRN #15 tablet PRN Reason: Referrals: BRANDON CORTES PA-C [Primary Care Provider] - Follow up as needed
[2019-06-29 11:50] LABS: TROPONIN I < 0.012 ng/mL
[2019-06-29 12:06] LABS: APPEARANCE,URINE SLIGHTLY-CLOUDY; BILIRUBIN,URINE NEGATIVE (NEGATIVE); COLOR,URINE YELLOW; GLUCOSE, URINE NEGATIVE (NEGATIVE); KETONES,URINE NEGATIVE (NEGATIVE); LEUKOCYTE ESTERASE,URINE NEGATIVE (NEGATIVE); NITRITE,URINE NEGATIVE (NEGATIVE); PROTEIN,URINE NEGATIVE (NEGATIVE); URINE SPECIFIC GRAVITY 1.017; UROBILINOGEN,URINE NEGATIVE mg/dL (<2.0)
[2019-06-29] MEDS ORDERED: OXYCODONE-ACETAMINOPHEN 5-325 MG TABLET PO ONE (13:05)
[2019-06-29 16:45] VITALS: BP 164/97
--- NOTE | 2019-06-29 18:13 | EKG REPORT ---
SEVERITY:- BORDERLINE ECG - SINUS RHYTHM BORDERLINE T ABNORMALITIES, DIFFUSE LEADS : Confirmed by: Priyanka Jones 29-Jun-2019 18:13:11
== END 2019-06-29 16:58 | disposition home or self-care (01) ==
LOC: ER 09:31
DX: R07.89 Other chest pain (principal); R25.1 Tremor, unspecified; R42 Dizziness and giddiness; M62.838 Other muscle spasm; Z88.2 Allergy status to sulfonamides; Z79.899 Other long term (current) drug therapy; I10 Essential (primary) hypertension
CPT/HCPCS: 93005; 99283; 96374; 36415; 82553; 82550; 85025; 80053; 81001; 84484; 93010; A9270 ×2; J1885

== ENCOUNTER 2019-10-08 16:03 | Emergency (ER) | payer MEDICARE, MEDICAID ==
[2019-10-08] MEDS ORDERED: HYDROCODONE/ACETAMINOPHEN 5-325 MG TABLET PO ONE (16:37)
--- NOTE | 2019-10-08 16:40 | ER Document Report ---
ED Medical Screen (RME) - General Chief Complaint: Fall Injury Stated Complaint: FALL/EAR PAIN,LEFT SHOULDER PAIN Time Seen by Provider: 10/08/19 16:27 Primary Care Provider: BRANDON CORTES PA-C [Primary Care Provider] - Follow up as needed Mode of Arrival: Wheelchair Notes: HPI; 44-year-old female presents to the emergency room with a fall at home. States she was trying to get to the restroom was holding onto the wall when she lost her balance hitting her face, her left ear, and her left shoulder on the door frame causing her to fall to the ground hitting her face. She denies loss of consciousness. She is complaining of neck pain, left shoulder pain, left ear pain. And left-sided facial pain. Denies nausea, vomiting. PE: Alert and oriented x3. Moderate distress noted. Left outer ear canal with blood noted. Unable to visualize tympanic membrane. Left-sided facial swelling. No louie signs, no raccoon eyes. Nontender to the cervical spine on palpation but there is pain with lateral movement of the neck. Presentation of head trauma in an otherwise well-appearing patient. Did have neurologic deficits on exam, no evidence of basilar skull fracture on exam with evidence of hemotympanum, getting for raccoon eyes, negative periauricular hematoma. No papilledema. Patient is not on anticoagulation. GCS is 15. No loss of consciousness. No episodes of vomiting. Patient is therefore that if via [place] head CT criteria and CT imaging will not be obtained at this time. I have greeted and performed a rapid initial assessment of this patient. A comprehensive ED assessment and evaluation of the patient, analysis of test results and completion of the medical decision making process will be conducted by additional ED providers. I have specifically instructed the patient or family members with the patient to immediately return to any nursing staff should anything change in the patient's condition or with their chief complaint. TRAVEL OUTSIDE OF THE [place] IN LAST 30 DAYS: No - Related Data Allergies/Adverse Reactions: Sulfa (Sulfonamide Antibiotics) Allergy (Verified 06/29/19 12:53) Past Medical History - Past Medical History Cardiac Medical History: Reports: Hx Hypertension Neurological Medical History: Reports: Hx Seizures Renal/ Medical History: Denies: Hx Peritoneal Dialysis Psychiatric Medical History: Reports: Hx Depression - Immunizations Immunizations up to date: Yes Hx Diphtheria, Pertussis, Tetanus Vaccination: Yes Physical Exam - Vital signs Vitals: Temp Pulse Resp BP Pulse Ox 98.6 F 98 18 117/99 H 97 10/08/19 16:07 10/08/19 16:07 10/08/19 16:07 10/08/19 16:07 10/08/19 16:07 Course - Vital Signs Vital signs: Temp Pulse Resp BP Pulse Ox 98.6 F 98 18 117/99 H 97 10/08/19 16:07 10/08/19 16:07 10/08/19 16:07 10/08/19 16:07 10/08/19 16:07 Doctor's Discharge - Discharge Referrals: BRANDON CORTES PA-C [Primary Care Provider] - Follow up as needed
--- NOTE | 2019-10-08 18:02 | RADIOLOGY REPORT (SQ) ---
EXAM DESCRIPTION: CT FACIAL AREA WITHOUT IMAGES COMPLETED DATE/TIME: 10/08/2019 4:27 pm REASON FOR STUDY: head trauma. COMPARISON: None. TECHNIQUE: Noncontrasted images through the facial bones and orbits windowed for bone and soft tissu e. Additional coronal and sagittal reconstructed images reviewed. All images stored on PACS. All CT scanners at this facility use dose modulation, iterative reconstruction, and/or weight based d osing when appropriate to reduce radiation dose to as low as reasonably achievable (ALARA). [facility]: Dose Right [facility]: CareDose [facility]: Dose Right [facility]: Teradose 4D [facility]: [employer] RADIATION DOSE: mGy. LIMITATIONS: None. FINDINGS: FACIAL BONES: No fracture or bone lesion. ORBITS: Intact. No fracture. Symmetric intact globes and retroorbital soft tissues. PARANASAL SINUSES: Clear. No significant mucosal thickening, mass or fluid. No nasal polyps. Maxill zoltan sinus outlets are patent. SOFT TISSUES: No mass or edema. INFERIOR BRAIN: Limited view. No acute findings. OTHER: No other significant finding. IMPRESSION: NO ACUTE FINDINGS. TECHNICAL DOCUMENTATION: JOB ID: [id number] Quality ID # 436: Final reports with documentation of one or more dose reduction techniques (e.g., Au tomated exposure control, adjustment of the mA and/or kV according to patient size, use of iterative reconstruction technique) 2010 [employer]- All Rights Reserved Reading location - IP/workstation name: [email or web address]
--- NOTE | 2019-10-08 18:03 | RADIOLOGY REPORT (SQ) ---
EXAM DESCRIPTION: SHOULDER LEFT 2 OR MORE VIEWS IMAGES COMPLETED DATE/TIME: 10/08/2019 4:13 pm REASON FOR STUDY: FALL. COMPARISON: None. NUMBER OF VIEWS: Three views. TECHNIQUE: Internal rotation, external rotation, and Y view images acquired of the left shoulder. LIMITATIONS: None. FINDINGS: MINERALIZATION: Normal. BONES: No acute fracture. No worrisome bone lesions. JOINTS: No dislocation. VISUALIZED LUNGS AND RIBS: No pneumothorax. No rib fracture. SOFT TISSUES: No radiopaque foreign body. OTHER: No other significant finding. IMPRESSION: NEGATIVE STUDY OF THE LEFT SHOULDER. NO RADIOGRAPHIC EVIDENCE OF ACUTE INJURY. TECHNICAL DOCUMENTATION: JOB ID: [id number] 2010 [employer] (formerly [employer])- All Rights Reserved Reading location - IP/workstation name: [email or web address]
--- NOTE | 2019-10-08 18:04 | RADIOLOGY REPORT (SQ) ---
EXAM DESCRIPTION: CT HEAD WITHOUT IMAGES COMPLETED DATE/TIME: 10/08/2019 4:27 pm REASON FOR STUDY: head trauma COMPARISON: None. TECHNIQUE: Axial images acquired through the brain without intravenous contrast. Images reviewed wi th bone, brain and subdural windows. Additional sagittal and coronal reconstructions were generated. Images stored on PACS. All CT scanners at this facility use dose modulation, iterative reconstruction, and/or weight based d osing when appropriate to reduce radiation dose to as low as reasonably achievable (ALARA). [facility]: Dose Right [facility]: CareDose [facility]: Dose Right [facility]: Teradose 4D [facility]: [employer] RADIATION DOSE: mGy. LIMITATIONS: None. FINDINGS: VENTRICLES: Normal size and contour. CEREBRUM: No masses. No hemorrhage. No midline shift. No evidence for acute infarction. Normal gra y-white matter differentiation. CEREBELLUM: No masses. No hemorrhage. No alteration of density. No evidence for acute infarction. EXTRAAXIAL SPACES: No fluid collections. No masses. ORBITS AND GLOBE: No intra- or extraconal masses. Normal contour of globe without masses. CALVARIUM: No fracture. PARANASAL SINUSES: No fluid or mucosal thickening. SOFT TISSUES: No mass or hematoma. OTHER: No other significant finding. IMPRESSION: No acute intracranial hemorrhage, mass, or evidence of acute territorial infarct. EVIDENCE OF ACUTE STROKE: NO. COMMENT: Quality ID # 436: Final reports with documentation of one or more dose reduction techniques (e.g., Automated exposure control, adjustment of the mA and/or kV according to patient size, use of iterative reconstruction technique) TECHNICAL DOCUMENTATION: JOB ID: [id number] 2010 [employer]- All Rights Reserved Reading location - IP/workstation name: [email or web address]
--- NOTE | 2019-10-08 18:11 | RADIOLOGY REPORT (SQ) ---
EXAM DESCRIPTION: CT CERVICAL SPINE WITHOUT IMAGES COMPLETED DATE/TIME: 10/08/2019 4:27 pm REASON FOR STUDY: head trauma COMPARISON: None. TECHNIQUE: Axial images acquired through the cervical spine without intravenous contrast. Images re viewed with lung, soft tissue and bone windows. Reconstructed coronal and sagittal MPR images review ed. Images stored on PACS. All CT scanners at this facility use dose modulation, iterative reconstruction, and/or weight based d osing when appropriate to reduce radiation dose to as low as reasonably achievable (ALARA). [facility]: Dose Right [facility]: CareDose [facility]: Dose Right [facility]: Teradose 4D [facility]: [employer] RADIATION DOSE: CT Rad equipment meets quality standard of care and radiation dose reduction techniq ues were employed. CTDIvol: 27.6 - 53.2 mGy. DLP: 2013 mGy-cm. mGy. LIMITATIONS: None. FINDINGS: ALIGNMENT: Straightening of the normal cervical lordosis. MINERALIZATION: Normal. VERTEBRAL BODIES: No acute fracture or cortical disruption. Small marginal osteophytes. Posterior p rojecting marginal osteophytes at C3, C5, C6 and C7. DISCS: Degenerative disc disease with loss of intervertebral disc space most prominent at C5-C6 and C 6-C7. FACETS, LATERAL MASSES, POSTERIOR ELEMENTS: No fractures. No dislocation. No acute findings. HARDWARE: None in the spine. VISUALIZED RIBS: No fractures. LUNG APICES AND SOFT TISSUES: No significant or acute findings. OTHER: No other significant finding. IMPRESSION: Degenerative disc disease and spondylosis with small posterior projecting marginal osteo phytes in the cervical spine. No acute fracture or dislocation. TECHNICAL DOCUMENTATION: JOB ID: [id number] Quality ID # 436: Final reports with documentation of one or more dose reduction techniques (e.g., Au tomated exposure control, adjustment of the mA and/or kV according to patient size, use of iterative reconstruction technique) 2010 [employer]- All Rights Reserved Reading location - IP/workstation name: [email or web address]
[2019-10-08] MEDS ORDERED: KETOROLAC TROMETHAMINE 60 MG/2 ML SDV IM ONE (18:56)
--- NOTE | 2019-10-08 19:04 | ER Document Report ---
ED Fall - General Chief Complaint: Fall Injury Stated Complaint: FALL/EAR PAIN,LEFT SHOULDER PAIN Time Seen by Provider: 10/08/19 16:27 Primary Care Provider: BRANDON CORTES PA-C [Primary Care Provider] - Follow up as needed Mode of Arrival: Wheelchair Information source: Patient TRAVEL OUTSIDE OF THE [place] IN LAST 30 DAYS: No - HPI Notes: Patient complains of left shoulder pain and left facial pain. She states that this started after a fall that happened just before arrival. Patient states that she has a history of permanent injury with spasms that requires her to use a walker. She states that she was trying to hurry up and get to the bathroom with out using a walker and lost her balance and fell. She states that her face and left shoulder hit the wall. She denies any loss of consciousness. She complains of left face and left shoulder pain that is constant. It is worse if moved or touched. It is better if left alone. The pain does radiate down the left side of her body. It is a sharp and throbbing pain. It is moderate in intensity. Has had no vomiting or diarrhea. She has no lower extremity or hip pain. No chest or abdominal pain. No change in vision or confusion. - Related data Allergies/Adverse Reactions: Sulfa (Sulfonamide Antibiotics) Allergy (Verified 06/29/19 12:53) Past Medical History - General Information source: Patient - Social History Smoking Status: Never Smoker Frequency of alcohol use: None Drug Abuse: None Family History: Reviewed & Not Pertinent Patient has homicidal ideation: No - Past Medical History Cardiac Medical History: Reports: Hx Hypertension Neurological Medical History: Reports: Hx Seizures Renal/ Medical History: Denies: Hx Peritoneal Dialysis Psychiatric Medical History: Reports: Hx Depression - Immunizations Immunizations up to date: Yes Hx Diphtheria, Pertussis, Tetanus Vaccination: Yes Review of Systems - Review of Systems Constitutional: denies: Chills, Fever Cardiovascular: denies: Chest pain, Palpitations Respiratory: denies: Cough, Short of breath -: Yes All other systems reviewed and negative Physical Exam - Vital signs Vitals: Temp Pulse Resp BP Pulse Ox 98.6 F 98 18 117/99 H 97 10/08/19 16:07 10/08/19 16:07 10/08/19 16:07 10/08/19 16:07 10/08/19 16:07 Interpretation: Hypertensive - General General appearance: Appears well, Alert - HEENT Head: Normocephalic, Tenderness - Patient has tenderness along the left lateral face, Other - Patient appears to have some left sided soft tissue swelling along the lateral face over the zygomatic arch and maxillary area. She has no specific mandibular tenderness however. Patient is tender along this area. Eyes: Normal Conjunctiva: Normal Cornea: Normal Pupils: PERRL Ears: Pinna tenderness - Patient has an abrasion to the external ear with bleeding controlled. It is not amenable to suturing. External canal: Blood in canal Tympanic membrane: Normal. No: Hemotympanum Nasal: Normal Mouth/Lips: Normal Mucous membranes: Moist Neck: Normal, Other - No cervical spine tenderness to palpation - Respiratory Respiratory status: No respiratory distress Chest status: Nontender Breath sounds: Normal Chest palpation: Normal - Cardiovascular Rhythm: Regular Heart sounds: Normal auscultation Murmur: No - Abdominal Inspection: Normal Distension: No distension Bowel sounds: Normal Tenderness: Nontender Organomegaly: No organomegaly - Back Back: Normal, Nontender - Extremities General upper extremity: Normal inspection, Tender - Left anterior shoulder has ecchymosis and swelling approximately in the clavicular midline. This area is tender to palpation. She has some limited range of motion of the left shoulder secondary to this pain., Normal color, Normal temperature, Other - Patient is neurovascularly intact in both upper extremities with a 2+ radial pulse bilaterally. General lower extremity: Normal inspection, Nontender, Edema - 2+ lower extremity edema bilaterally, Normal color, Normal ROM, Normal temperature. No: Alvaro's sign - Neurological Neuro grossly intact: Yes Cognition: Normal Orientation: AAOx4 [place] Coma Scale Eye Opening: Spontaneous [place] Coma Scale Verbal: Oriented [place] Coma Scale Motor: Obeys Commands [place] Coma Scale Total: 15 Speech: Normal Motor strength normal: LUE, RUE, LLE, RLE Sensory: Normal - Psychological Associated symptoms: Normal affect, Normal mood - Skin Skin Temperature: Warm Skin Moisture: Dry Skin Color: Normal - Except as noted above for the facial and left shoulder contusion and left ear abrasion Course - Re-evaluation Re-evalutation: 10/08/19 19:03 Patient fell at home and hit the left side of her face and shoulder on a wall. She has no evidence of acute bony injury. She has some contusions and abrasions that were addressed here. She will require some pain medicine for home. No suturing was necessary. 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 No known loss of consciousness, patient is alert and oriented and conversing normally. - Vital Signs Vital signs: Temp Pulse Resp BP Pulse Ox 98.6 F 98 18 117/99 H 97 10/08/19 16:07 10/08/19 16:07 10/08/19 16:07 10/08/19 16:07 10/08/19 16:07 - Diagnostic Test Radiology reviewed: Image reviewed, Reports reviewed Discharge - Discharge Clinical Impression: Facial contusion Qualifiers: Encounter type: initial encounter Qualified Code(s): S00.83XA - Contusion of other part of head, initial encounter Abrasion of left ear Qualifiers: Encounter type: initial encounter Qualified Code(s): S00.412A - Abrasion of left ear, initial encounter Contusion of left shoulder Qualifiers: Encounter type: initial encounter Qualified Code(s): S40.012A - Contusion of left shoulder, initial encounter Condition: Stable Disposition: HOME, SELF-CARE Instructions: Contusion ([facility]), Abrasions ([facility]), Shoulder Injury ([facility]) Prescriptions: Hydrocodone/Acetaminophen [Palisade 5-325 mg Tablet] 1 tab PO Q6 PRN 3 Days #12 tablet PRN Reason: Referrals: BRANDON CORTES PA-C [Primary Care Provider] - Follow up in 3-5 days
[2019-10-08 19:44] VITALS: BP 143/83
== END 2019-10-08 19:45 | disposition home or self-care (01) ==
LOC: ER 16:03
DX: S00.83XA Contusion of other part of head, initial encounter (principal); S40.012A Contusion of left shoulder, initial encounter; S00.412A Abrasion of left ear, initial encounter; M25.512 Pain in left shoulder; R51 Headache; W19.XXXA Unspecified fall, initial encounter; Y93.89 Activity, other specified; Y92.009 Unspecified place in unspecified non-institutional (private) residence as the place of occurrence of the external cause; R60.0 Localized edema; I10 Essential (primary) hypertension; Z88.2 Allergy status to sulfonamides
CPT/HCPCS: 99284; 96372; 73030; 70450; 70486; 72125; J1885; A9270